=== PATIENT | male | born 2000 | race African-American/Black ===

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

== ENCOUNTER 2022-05-03 22:11 | Emergency (ER) | payer MEDICAID, SELFPAY ==
[2022-05-03] MEDS ORDERED: Ketorolac Tromethamine 30 MG/ML VIAL ONE (22:56)
== END 2022-05-03 23:29 | disposition home or self-care (01) ==
LOC: ERS 22:11
DX: S02.2XXA Fracture of nasal bones, initial encounter for closed fracture (principal); W22.09XA Striking against other stationary object, initial encounter
CPT/HCPCS: 70486; 96372; J1885